=== PATIENT | male | born 1975 | race Caucasian/White ===

== ENCOUNTER 2022-03-31 10:52 | Outpatient (CLI) | payer OTHER, SELFPAY ==
[2022-03-31 16:10] LABS: Chloride* 99 mmol/L (96-114); Potassium* 4.3 mmol/L (3.6-5.1); Sodium* 137 mmol/L (135-149)
[2022-03-31 16:13] LABS: Blood Urea Nitrogen* 15 mg/dL (5-24); Calcium* 9.1 mg/dL (8.4-10.6); Carbon Dioxide* 30 mmol/L (20-32); Cholesterol* 148 mg/dL (90-199); Creatinine* 0.8 mg/dL (0.5-1.5); Estimated Glomerular Filt Rate 111 ml/min; Glucose* 86 mg/dL (60-115); Triglycerides* 61 mg/dL (40-149)
[2022-03-31 16:14] LABS: HDL Cholesterol* 39 mg/dL (>=40); LDL Cholesterol Calculated 97 mg/dL (<100)
== END 2022-03-31 10:53 | disposition home or self-care (01) ==
PROVIDERS: PCP Family Medicine; Visit Provider Family Medicine
DX: Z00.00 Encounter for general adult medical examination without abnormal findings (principal); I10 Essential (primary) hypertension; Z13.6 Encounter for screening for cardiovascular disorders
CPT/HCPCS: 80048; 80061

== ENCOUNTER 2023-04-04 11:13 | Outpatient (CLI) | payer OTHER, SELFPAY | END 2023-04-04 11:14 | disposition home or self-care (01) | LOC: FBOREF 11:14 | PROVIDERS: PCP Family Medicine; Visit Provider Family Medicine | DX: H66.91 Otitis media, unspecified, right ear (principal) | CPT/HCPCS: 87070 ==

== ENCOUNTER 2024-02-28 07:46 | Outpatient (CLI) | payer OTHER, SELFPAY | END 2024-02-28 07:47 | disposition home or self-care (01) | LOC: FBOREF 07:46 | PROVIDERS: PCP Family Medicine; Visit Provider Family Medicine | DX: I10 Essential (primary) hypertension (principal); Z13.6 Encounter for screening for cardiovascular disorders | CPT/HCPCS: 80061 ==

== ENCOUNTER 2024-03-20 07:58 | Outpatient (CLI) | payer OTHER, SELFPAY ==
--- NOTE | 2024-03-20 08:15 | MR_ITS ---
[address] [address] Phone:?[phone] Fax:?[phone] Referring Physician Information: Jm Larson M.D. [id number] [facility] [address] Phone:?[phone] Fax:?[phone] Patient:Ivory Maldonado D.O.B:?1975 Sex:?Male Phone:?[phone] [facility] MRN:[id number] Exam Date:?03/20/2024 EXAM: MRI of the RIGHT KNEE, without contrast CLINICAL HISTORY: Ongoing right knee pain. Evaluate for medial meniscal tear. History of previous surgery to the medial meniscus. COMPARISONS: Plain radiographs 11/07/2023 and 09/16/2021. TECHNICAL: MR sequences of the right knee: sagittals: PD, T2 FS coronals: PD, STIR, T2 axials: PD, T2 FS CONTRAST: None SEDATION: None FINDINGS: Bones: No fracture or destructive osseous lesion is seen. 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 Retinacula: The medial and lateral retinacula are intact. Fat pads: The infrapatellar, quadriceps, and prefemoral fat pads are unremarkable. Knee joint: Effusion: Small right knee joint effusion. Popliteal cyst: None. Intra-articular bodies: None. Posteromedial corner: Unremarkable. Medial compartment: Medial meniscus: Marked diminution from the anterior horn/body junction through posterior horn of the medial meniscus are findings consistent with surgical changes status post partial medial meniscectomy. Correlate with surgical history. Currently, no convincing evidence of recurrent medial meniscal tear. Cartilage: Diffuse grade II and III chondromalacia over most of the weightbearing portion of the medial femoral condyle, moderately progressed compared to previous MRI 09/24/2021, and suspected grade II chondral thinning over the medial tibial plateau, similar compared to previous MRI 09/24/2021. Lateral compartment: Lateral meniscus: There is fraying and mild mucoid degeneration of the anterior root through anterior root/anterior horn junction of the lateral meniscus. No unstable lateral meniscal tear is seen. Cartilage: Approximately 1.0 x 1.0 cm area of grade III chondromalacia over the posterior portion of the lateral tibial plateau, similar compared to previous MRI 09/24/2021. Ligaments: Anterior cruciate ligament: Intact. Posterior cruciate ligament: Intact. Medial collateral ligament: Intact. Posterior oblique ligament: Intact. Fibular collateral ligament: Intact. Posterolateral corner: The distal biceps femoris tendon, iliotibial band, popliteus tendon, popliteus muscle, popliteofibular ligament, and arcuate ligament are intact. Extensor mechanism: Patellar tendon: Intact. Quadriceps tendon: Intact. IMPRESSION: 1. Marked diminution from the anterior horn/body junction through posterior horn of the medial meniscus are findings consistent with surgical changes status post partial medial meniscectomy. Correlate with surgical history. Currently, no convincing evidence of recurrent medial meniscal tear. 2. Fraying and mild mucoid degeneration of the anterior root through anterior root/anterior horn junction of the lateral meniscus, new compared to previous MRI 09/24/2021 and of uncertain clinical significance. No unstable lateral meniscal tear. 3. Diffuse grade II and III chondromalacia over most of the weightbearing portion of the medial femoral condyle, moderately progressed compared to previous MRI 09/24/2021, and suspected grade II chondral thinning over the medial tibial plateau, similar compared to previous MRI 09/24/2021. 4. 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 5. Approximately 1.0 x 1.0 cm area of grade III chondromalacia over the posterior portion of the lateral tibial plateau, similar compared to previous MRI 09/24/2021. 6. No ligamentous injury of the right knee. RCB Electronically signed on 03/20/2024 1:55:00 PM by Alex Edmonds M.D.
== END 2024-03-20 07:59 | disposition home or self-care (01) ==
LOC: MRI 07:59
PROVIDERS: PCP Family Medicine; Visit Provider Orthopaedic Surgery
DX: M25.561 Pain in right knee (principal); M94.261 Chondromalacia, right knee; M22.41 Chondromalacia patellae, right knee
CPT/HCPCS: 73721